=== PATIENT | male | born 2000 | race Hispanic/Latino ===

== ENCOUNTER 2022-07-01 16:40 | Emergency (ER) | payer MEDICAID, MEDICARE ==
[~2022-07-01] VITALS: Ht 175.3 cm; Wt 80.1 kg
[2022-07-01 17:30] VITALS: BP 116/63
== END 2022-07-01 19:04 | disposition home or self-care (01) ==
LOC: EDH 16:40
DX: S60.511A Abrasion of right hand, initial encounter (principal); W18.39XA Other fall on same level, initial encounter; Y93.61 Activity, american tackle football; Y92.39 Other specified sports and athletic area as the place of occurrence of the external cause; Y99.8 Other external cause status
CPT/HCPCS: 73130